=== PATIENT | male | born 1995 | race African-American/Black ===

== ENCOUNTER 2019-03-10 22:41 | Emergency (ER) | payer SELFPAY ==
--- NOTE | 2019-03-10 23:15 | EDM.PDOC ---
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 He presents with a 3 cm linear laceration to his left thenar eminence. He denies tingling or numbness to his left thumb, and he has full range of motion of his thumb. No prior left hand injury. He is otherwise uninjured. The patient's last tetanus vaccination was in 2013. The patient does not have a PCP. - Related Data Allergies Allergy/AdvReac Type Severity Reaction Status Date / Time No Known Allergies Allergy Verified 03/10/19 22:56 Home Meds: Home Meds . [No Known Home Meds] 03/10/19 [History] Past Medical History - Past Surgical History HEENT Surgical History: Reports: Eye Surgery (left (unclear what kind of surgery )) Social & Family History - Tobacco Use Smoking Status *Q: Never Smoker - Caffeine Use Caffeine Use: Reports: None - Alcohol Use Alcohol Use History: Yes Alcohol Use Frequency: Socially - Recreational Drug Use Recreational Drug Use: No - Living Situation & Occupation Living situation: Reports: Single, Other (With a friend) Occupation: Employed ([id number]) ED ROS GENERAL - Review of Systems Review Of Systems: ROS reveals no pertinent complaints other than HPI. ED EXAM, SKIN/RASH Exam: See Below Exam Limited By: No Limitations General Appearance: Alert, WD/WN, No Apparent Distress Extremities: Other (There is a 3 cm linear laceration to the thenar eminence of the left hand. The wound is not deep, but is full-thickness. The wound edges are well approximated. Minimal bleeding. Patient denies tingling or numbness to his left thumb or hand, and he has full range of motion to his left thumb. Neurovascular status of the left hand is intact.) ED SKIN PROCEDURES - Laceration/Wound Repair Left Hand Lac/Wound length In cm: 3.0 Appearance: Subcutaneous, Linear, Clean Distal NVT: Neuro & Vascular Intact, No Tendon Injury Skin Prep: Chlorhexidine (Hibiciens) Exploration/Debridement/Repair: Wound Explored, In a Bloodless Field, Explored to Base, No Foreign Material Found, Wound Margins Revised Closed with: Dermabond Sterile Dressing Applied: None Tetanus Status Addressed: Yes Complications: No Course - Vital Signs Last Recorded V/S: Last Vital Signs Temp 36.6 C 03/10/19 22:59 Pulse 65 03/10/19 22:59 Resp 20 03/10/19 22:59 BP 132/82 03/10/19 22:59 Pulse Ox 100 03/10/19 22:59 - Re-Assessments/Exams Free Text/Narrative Re-Assessment/Exam: 03/10/19 23:15 The left hand laceration was an excellent candidate for closure with Dermabond. The patient tolerated the procedure well. Departure - Departure Time of Disposition: 23:16 Disposition: Home, Self-Care 01 Condition: Good Clinical Impression: Laceration of left hand - Discharge Information *PRESCRIPTION DRUG MONITORING PROGRAM REVIEWED*: Not Applicable *COPY OF PRESCRIPTION DRUG MONITORING REPORT IN PATIENT CAMELIA: Not Applicable Referrals: PCP,None [Primary Care Provider] - Additional Instructions: You were seen in the emergency room after cutting her left hand with a utility knife at work. Your wound was closed with Dermabond. You may wash your hands, but do not scrub the Dermabond. Do not pick at the Dermabond. Allow it to flake off on its own in a few days. If any other problems, please do not hesitate to return to the ER.
== END 2019-03-10 23:34 | disposition home or self-care (01) ==
LOC: JD.ED 22:41
DX: S61.412A Laceration without foreign body of left hand, initial encounter (principal); W26.0XXA Contact with knife, initial encounter
CPT/HCPCS: 12001; 12002; 99282